=== PATIENT | female | born 1960 | race Caucasian/White ===

== ENCOUNTER 2019-07-23 22:06 | Emergency (ER) | payer SELFPAY ==
[2019-07-23] MEDS ORDERED: FENTANYL CITR 100 MCG/2 ML ONE (22:34)
[2019-07-23 22:59] LABS: BUN Blood Urea Nitrogen 13 mg/dL (7-18); Bicarbonate 20 mmol/L (21-32); Glucose Level 94 mg/dL (74-106); Potassium 3.2 mmol/L (3.5-5.1); Sodium Level 129 mmol/L (136-145)
[2019-07-23 23:05] LABS: Absolute Lymphocytes (CBC) 1.8 K/uL (0.7-4.9); Basophils % 0.9 % (0-1.3); Hematocrit 26.6 % (36.0-45.0); Lymphocytes % 29.7 % (15.3-44.8); MPV 7.5 fL (7.6-11.3); RBC Red Blood Cell Count 3.87 M/uL (3.86-4.86)
[2019-07-23 23:38] LABS: Anisocytosis 1+; Blood Morphology Comment NOTED (NOT SEEN); Elliptocytes 1+; Hypochromasia 1+; Platelet Estimate ADEQ; Poikilocytosis 1+; Polychromasia SLIGHT; Urine White Blood Cell Casts OK
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
[2019-07-24] MEDS ORDERED: HYDROCODONE/APAP 10/325 TAB ONE (02:33)
[2019-07-24 03:25] VITALS: O2SAT 98
[2019-07-24 03:29] VITALS: BP 122/83; TEMP 98.1
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
== END 2019-07-24 02:38 | disposition home or self-care (01) ==
LOC: ER 22:06
DX: S22.32XA Fracture of one rib, left side, initial encounter for closed fracture (principal); S62.615A Displaced fracture of proximal phalanx of left ring finger, initial encounter for closed fracture; M23.8X2 Other internal derangements of left knee; N83.299 Other ovarian cyst, unspecified side; V49.49XA Driver injured in collision with other motor vehicles in traffic accident, initial encounter; Z85.9 Personal history of malignant neoplasm, unspecified
CPT/HCPCS: 36415; 70450; 71260; 72125; 74177; 80048; 85025; 96374; 99285; J3010; Q9967

== ENCOUNTER 2020-04-28 20:08 | Emergency (ER) | payer SELFPAY ==
[2020-04-28] MEDS ORDERED: MORPHINE 4 MG/ML SYR ONE (20:54)
--- NOTE | 2020-04-28 21:26 | RAD REPORT ---
EXAM DESCRIPTION: CT - Spine Lumbar Wo Con - 04/28/2020 9:13 pm CLINICAL HISTORY: Radiculopathy. LOWER BACK PAIN COMPARISON: No comparisons TECHNIQUE: Axial noncontrast CT imaging of the lumbar spine was performed with coronal and sagittal re-formatted images. All CT scans are performed using dose optimization technique as appropriate and may include automated exposure control or mA/KV adjustment according to patient size. FINDINGS: There is a moderate compression fracture affecting the T12 vertebral body, with estimated vertebral body height loss of 25%. There is a mild compression fracture affecting the L2 vertebral tereza dy, with estimated vertebral body height loss of 15%. Both these fractures are acute in appearance. T 12 fracture demonstrates mild retropulsion resulting in moderate canal narrowing. L2 fracture demonst rates no significant canal compromise. Moderate lumbosacral spondylosis is present. No paraspinal abscess. Mild paraspinal tissues thickenin g at the level of the fractures is seen. The uterus appears quite enlarged in size, partially evaluated. Fatty mass in the central upper pelvi s measuring 4 cm noted, probably an ovarian dermoid. IMPRESSION: Acute, moderate compression fracture T12 and a mild compression fracture of L2 noted as detailed. The uterus appears enlarged, incompletely assessed. 4 cm right ovarian dermoid suspected.
[2020-04-28] MEDS ORDERED: NA CHLORIDE 0.9% 1,000 ML ONE (21:53)
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
[2020-04-28 23:57] VITALS: TEMP 97.9
[2020-04-29] VITALS: BP 93/63
[2020-04-29 00:34] VITALS: O2SAT 99
== END 2020-04-28 23:47 | disposition home or self-care (01) ==
LOC: ER 20:08
DX: S32.020A Wedge compression fracture of second lumbar vertebra, initial encounter for closed fracture (principal); S22.080A Wedge compression fracture of T11-T12 vertebra, initial encounter for closed fracture; E86.0 Dehydration; W22.8XXA Striking against or struck by other objects, initial encounter; Y93.I9 Activity, other involving external motion; Y92.89 Other specified places as the place of occurrence of the external cause; Z91.013 Allergy to seafood
CPT/HCPCS: 72131; 96360; 99284; J7030